=== PATIENT | female | born 1955 | race Caucasian/White ===

== ENCOUNTER 2016-05-31 14:17 | Emergency (ER) | payer OTHER ==
[2016-05-31 14:32] VITALS: BP 117/59
--- NOTE | 2016-05-31 15:31 | PROVIDER DOCUMENTATION ---
HPI-Musculoskeletal Pain/Inj - GENERAL Chief Complaint: Extremity Injury Stated Complaint: EXTREMITY INJURY Time Seen by Provider: 05/31/16 15:07 Source: patient - HX OF PRESENT ILLNESS-MUSKULOSKELTAL Nature of Presenting Problem: 60 y/o WF c/o L wrist, hand pain x 1 day s/p fall. Pt states fell forward yesterday and hit her hand. Denies any numbness/tingling, elbow pain, shoulder pain, head injury, LOC. States on plavix. No other sxs. Review of Systems - Adult - REVIEW OF SYSTEMS - ADULT Constitutional: reports: no symptoms reported. denies: chills, fever Eyes: reports: no symptoms reported. denies: blurred vision, double vision Ears, Nose, Mouth & Throat: reports: no symptoms reported. denies: ear pain, nose pain Cardiovascular: reports: no symptoms reported. denies: chest pain, palpitations Respiratory: reports: no symptoms reported. denies: dyspnea on exertion, shortness of breath Gastrointestinal: reports: no symptoms reported. denies: abdominal pain, nausea , vomiting Genitourinary: reports: no symptoms reported. denies: dysuria, frequency Musculoskeletal: reports: see HPI, joint pain, joint swelling. denies: back pain, neck pain Integumentary: reports: no symptoms reported. denies: nail changes, rash Neurological: reports: no symptoms reported. denies: numbness, paresthesia Psychiatric: reports: no symptoms reported Endocrine: reports: no symptoms reported. denies: cold intolerance, heat intolerance Hematologic/Lymphatic: reports: no symptoms reported. denies: easy bruising, prolonged bleeding Allergic/Immunologic: reports: no symptoms reported All Other Systems: Reviewed and Negative Past History - Adult - PAST MEDICAL HISTORY-ADULT Review of Records: reports: Nursing Assessment Review, Medications Reviewed Cardiovascular: reports: HTN, hyperlipidemia Respiratory: reports: COPD Musculoskeletal: reports: chronic pain, fibromyalgia, orthopedic injury Neurological: reports: CVA, TIA, other (brain lesions) Psychiatric: reports: depression Endocrine/Immune: reports: Diabetes - PRIOR SURGERIES/PROCEDURES Surgical/Procedure History: reports: cholecystectomy, hysterectomy, orthopedic ( extremity) - IMMUNIZATION STATUS Childhood Immunizations: See Nurse Assessment Flu Vaccine: See Nurse Assessment - SOCIAL HISTORY Smoking: denies Physical Exam-Injury Related - Physical Exam-Injury Related Initial Vital Signs Reviewed: Yes General Appearance: alert, mild distress Eyes: pink conjunctivae Head, Ears, Nose, Mouth & Throat: normocephalic/atraumatic Neck: normal inspection Respiratory: no respiratory distress Cardiovascular: normal peripheral pulses, regular rate, rhythm Peripheral Pulses: radial (R): 2+, radial (L): 2+ Back Exam: normal inspection Extremity: normal range of motion, normal inspection, normal capillary refill. negative: abnormal NV exam, pulse deficit Integumentary: normal color, warm/dry, blanching Neurologic: negative: aphasia Psych/Mental Status: normal mood/affect, normal thought content, normal thought process, oriented x 3 Progress - XRAY 1 XRAY: Left XRAY Study: Hand Impression: See EMR Report (NAD, per Dr. Estrada) Departure - Departure Time of Disposition Order: 15:32 DIAGNOSIS: Left wrist sprain Qualifiers: Encounter type: initial encounter Qualified Code(s): S63.502A - Unspecified sprain of left wrist, initial encounter Disposition: HOME 01 Certified Medical Emergency: Emergent Condition: Stable Additional Instructions: Follow up with specialist for further management. Ice or heat as needed. ED Follow Up Instructions: You have been treated by a care provider in the Emergency Department. These instructions are being provided to you so you can have an understanding of how to care for yourself upon discharge. Upon discharge from the Emergency Department, you are responsible for making arrangements for follow-up care by a physician of your choice. Take all prescribed medications as directed. Return to the Emergency Department immediately for any new or worsening symptoms. You may call the Physician Referral phone number at [phone] to obtain a list of Physicians who are taking new patients. Referrals: Roscoe Aceves [Primary Care Provider] - William Magallon MD [STAFF PHYSICIAN] - Attestation - Physician/ AJITH Attestation Patient care was provided by Advanced Practice Provider:: Yes Advanced Practice Provider:: Sugar Ku Advanced Practice Provider documentation review:: The Mid-level provider documentation, treatment plan and medical decision making was reviewed by the physician who agrees with all treatment and medical decision making by the MLP.
--- NOTE | 2016-05-31 15:44 | Diag Imaging Result Document ---
PROCEDURE NAME: HAND COMPLETE LEFT - 05/31/2016 RIGHT HAND 3 VIEWS: FINDINGS: There are degenerative changes present in the interphalangeal joints, particularly of the ring, middle and index fingers. There is no evidence of fracture or dislocation. IMPRESSION: No evidence of acute bony disease.
== END 2016-05-31 15:48 | disposition home or self-care (01) ==
LOC: P.ED 14:17
DX: S63.502A Unspecified sprain of left wrist, initial encounter (principal); M25.532 Pain in left wrist; M79.642 Pain in left hand; M25.40 Effusion, unspecified joint; I10 Essential (primary) hypertension; E78.5 Hyperlipidemia, unspecified; J44.9 Chronic obstructive pulmonary disease, unspecified; E11.9 Type 2 diabetes mellitus without complications; Z86.73 Personal history of transient ischemic attack (TIA), and cerebral infarction without residual deficits; W19.XXXA Unspecified fall, initial encounter
CPT/HCPCS: 99283